=== PATIENT | female | born 1955 | race Caucasian/White ===

== ENCOUNTER 2021-03-18 11:41 | Outpatient (REF) | payer MEDICARE, SELFPAY ==
[2021-03-18 12:07] LABS: Binax Internal Control QC Valid; Binax Now Covid-19 Ag Negative (Negative)
== END 2021-03-18 11:42 | disposition home or self-care (01) ==
LOC: HO.LAB 11:41
PROVIDERS: PCP Internal Medicine; Visit Provider Internal Medicine
DX: Z13.89 Encounter for screening for other disorder (principal)

== ENCOUNTER 2024-01-14 12:48 | Outpatient (REF) | payer MEDICARE, SELFPAY ==
[2024-01-14 16:15] LABS: Estimated Average Glucose 286 mg/dL; Hemoglobin A1C 409.0702 umol/L; Hemoglobin A1c % 11.6 % (<6.0); Total Hemoglobin (HGBA1C) 3942.1975 umol/L
[2024-01-14 16:18] LABS: Alanine Aminotransferase 100 U/L (0-31); Anion Gap 16 (12-20); Aspartate Amino Transferase 63 U/L (5-31); Blood Urea Nitrogen 11 mg/dL (9-16); Calcium 9.8 mg/dL (8.4-10.2); Carbon Dioxide 29 mmol/L (22-29); Chloride 93 mmol/L (96-108); Estimated Glomerular Filt Rate > 60; Glucose Random 309 mg/dL (60-115); Potassium 4.3 mmol/L (3.3-5.1); Sodium 134 mmol/L (135-145)
== END 2024-01-14 12:49 | disposition home or self-care (01) ==
LOC: HO.HMGCLDS 12:48
PROVIDERS: PCP Internal Medicine; Visit Provider Physician Assistant
DX: E10.65 Type 1 diabetes mellitus with hyperglycemia (principal)
CPT/HCPCS: 36415; 80048; 83036; 84450; 84460